=== PATIENT | female | born 1990 | race Caucasian/White ===

== ENCOUNTER 2018-06-17 20:48 | Emergency (ER) | payer SELFPAY ==
[2018-06-17 20:55] VITALS: BP 126/79; PULSE 62; TEMP 98.2; BMI 34.7
== END 2018-06-17 22:55 | disposition left against medical advice (07) ==
LOC: JER 20:48
DX: Z53.21 Procedure and treatment not carried out due to patient leaving prior to being seen by health care provider (principal)
CPT/HCPCS: 99281-25